=== PATIENT | male | born 1955 | race African-American/Black ===

== ENCOUNTER 2022-03-21 02:53 | Emergency (ER) | payer SELFPAY ==
[~2022-03-21] VITALS: Ht 177.8 cm; Wt 117.0 kg
[2022-03-21] MEDS ORDERED: CEPH500C2 MT (04:30)
[2022-03-21] MEDS ORDERED: ACET-2708 MT (04:30)
[2022-03-21 04:42] VITALS: BP 131/87
== END 2022-03-21 04:43 | disposition home or self-care (01) ==
LOC: ER 02:53
DX: L02.415 Cutaneous abscess of right lower limb (principal); E11.9 Type 2 diabetes mellitus without complications
CPT/HCPCS: 99283

== ENCOUNTER 2022-04-03 02:55 | Emergency (ER) | payer SELFPAY ==
[~2022-04-03] VITALS: Ht 177.8 cm; Wt 94.2 kg
[~2022-04-03 02:55] MED LIST: ACET-2708 MT; CEPH500C2 MT
[2022-04-03] MEDS ORDERED: SULF1TAB48 MT (05:38)
[2022-04-03] MEDS ORDERED: MUPI1OIN4 TP (05:38)
[2022-04-03 06:00] VITALS: BP 128/79
== END 2022-04-03 06:07 | disposition home or self-care (01) ==
LOC: ER 02:55
DX: L02.415 Cutaneous abscess of right lower limb (principal)
CPT/HCPCS: 99283

== ENCOUNTER 2023-01-07 02:35 | Emergency (ER) | payer SELFPAY ==
[~2023-01-07] VITALS: Ht 177.8 cm; Wt 93.9 kg
[~2023-01-07 02:35] MED LIST changes: +MUPI1OIN4 TP; +SULF1TAB48 MT
[2023-01-07 02:57] VITALS: BP 136/79; PULSE 73; RESP 16; TEMP 98.7; O2SAT 99
[2023-01-07] MEDS ORDERED: AMOX1TAB16 MT (02:59)
== END 2023-01-07 03:11 | disposition home or self-care (01) ==
LOC: ER 02:35
DX: K08.89 Other specified disorders of teeth and supporting structures (principal); E11.9 Type 2 diabetes mellitus without complications; Z79.899 Other long term (current) drug therapy
CPT/HCPCS: 99283

== ENCOUNTER 2023-03-08 04:09 | Emergency (ER) | payer SELFPAY ==
[~2023-03-08] VITALS: Ht 177.8 cm; Wt 95.0 kg
[~2023-03-08 04:09] MED LIST changes: +AMOX1TAB16 MT
[2023-03-08 04:20] VITALS: BP 140/98; PULSE 63; RESP 16; TEMP 97.8; O2SAT 98
[2023-03-08] MEDS ORDERED: CLIN-194 MT (06:55)
== END 2023-03-08 07:02 | disposition home or self-care (01) ==
LOC: ER 04:09
DX: K04.7 Periapical abscess without sinus (principal); E11.9 Type 2 diabetes mellitus without complications; Z79.899 Other long term (current) drug therapy
CPT/HCPCS: 99283